=== PATIENT | male | born 1985 | race Hispanic/Latino ===

== ENCOUNTER 2018-02-11 16:44 | Emergency (ER) | payer SELFPAY ==
--- NOTE | 2018-02-11 16:54 | ER ---
Nurse's Notes [facility] Name: Javier Lagunas Age: 32 yrs Sex: Male : 1985 Arrival Date: 02/11/2018 Time: 16:48 Bed Waiting Private MD: Diagnosis: Presentation: 02/11 16:53 Note Patient left prior to triage, stating, "I got the blood to stop, I don't think I lk1 need to be here.". ED Course: 16:48 Patient arrived in ED. sb2 Administered Medications: No medications were administered Outcome: 16:53 Patient left the ED. lk1 Signatures: Precious Cedeno RN RN lk1 Elizabeth Nickerson sb2
== END 2018-02-11 16:53 | disposition left against medical advice (07) ==
LOC: ER 16:44
DX: Z02.9 Encounter for administrative examinations, unspecified (principal)

== ENCOUNTER 2018-09-15 08:32 | Emergency (ER) | payer SELFPAY ==
[2018-09-15] MEDS ORDERED: ONDANSETRON 4 MG/2 ML VIAL ONE (09:19)
[2018-09-15] MEDS ORDERED: NA CHLORIDE 0.9% 1,000 ML ONE (09:20)
[2018-09-15] MEDS ORDERED: FAMOTIDINE 20 MG/2 ML VIAL IV ONE (09:20)
[2018-09-15 09:52] LABS: ALT/SGPT 62 U/L (12-78); AST/SGOT 106 U/L (15-37); Albumin 4.1 g/dL (3.4-5.0); Alkaline Phosphatase 126 U/L (45-117); BUN Blood Urea Nitrogen 13 mg/dL (7-18); Bicarbonate 24 mmol/L (21-32); Bilirubin Direct 0.2 mg/dL (0-0.2); Bilirubin Total 0.6 mg/dL (0.2-1.0); Glucose Level 107 mg/dL (74-106); Lipase 131 U/L (73-393); Magnesium 2.4 mg/dL (1.8-2.4); Potassium 3.8 mmol/L (3.5-5.1); Protein, Total 8.2 g/dL (6.4-8.2); Sodium Level 135 mmol/L (136-145); Troponin I < 0.02 ng/mL (0.0-0.045)
[2018-09-15 09:59] LABS: Absolute Lymphocytes (CBC) 1.4 K/uL (0.7-4.9); Absolute Monocytes 0.9 K/uL (0.1-1.3); Basophils % 1.1 % (0-1.3); Hematocrit 47.6 % (39.6-49.0); MCV 100.4 fL (80-100); MPV 8.8 fL (7.6-11.3); Monocytes % 11.8 % (3.3-12.3); RBC Red Blood Cell Count 4.74 M/uL (4.33-5.43)
[2018-09-15 10:43] LABS: Barbiturates NEGATIVE (NEGATIVE); Benzodiazepines NEGATIVE (NEGATIVE); Cocaine NEGATIVE (NEGATIVE); METHAMPHETAM NEGATIVE (NEGATIVE); Methadone NEGATIVE (NEGATIVE); Opiates NEGATIVE (NEGATIVE); Phencyclidine NEGATIVE (NEGATIVE); THC Cannibis NEGATIVE (NEGATIVE)
--- NOTE | 2018-09-15 11:27 | RAD REPORT ---
EXAM DESCRIPTION: CT - Head Brain Wo Cont - 09/15/2018 11:10 am CLINICAL HISTORY: Headache COMPARISON: None. TECHNIQUE: Computed axial tomography of the head was obtained. IV contrast was not requested. All CT scans are performed using dose optimization technique as appropriate and may include automated exposure control or mA/KV adjustment according to patient size. FINDINGS: An intracranial bleed is not seen . The ventricles are normal in caliber. No extra-axial fluid collection is noted. Fluid within the sinuses/ mastoids is not seen. IMPRESSION: No acute intracranial abnormality is seen. If patient's symptoms persist MRI of the bra in would be recommended.
--- NOTE | 2018-09-15 12:14 | ER ---
Nurse's Notes [facility] Name: Javier Lagunas Age: 33 yrs Sex: Male : 1985 Arrival Date: 09/15/2018 Time: 08:36 Bed 7 Private MD: None, None Diagnosis: Alcohol dependence with withdrawal, uncomplicated Presentation: 09/15 08:49 Presenting complaint: Patient states: N/V, headache, and leg cramps since yesterday. Pt hb reports drinking 6-10 beers per day, last drink was yesterday. Transition of care: patient was not received from another setting of care. Onset of symptoms was September 14, 2018. Risk Assessment: Do you want to hurt yourself or someone else? Patient reports no desire to harm self or others. Care prior to arrival: None. 08:49 Method Of Arrival: Ambulatory hb 08:49 Acuity: BERNIE 3 hb 08:51 Initial Sepsis Screen: Does the patient meet any 2 criteria? No. Patient's initial tw2 sepsis screen is negative. Does the patient have a suspected source of infection? No. Patient's initial sepsis screen is negative. Historical: - Allergies: 08:50 No Known Allergies; tw2 08:50 No Known Allergies; hb - Home Meds: 08:50 ranitidine HCl 150 mg Oral cap 1 cap once daily [Active]; paroxetine HCl 20 mg Oral tab tw2 1 tab once daily [Active]; omeprazole 20 mg Oral cpDR 1 cap once daily [Active]; lisinopril-hydrochlorothiazide 10-12.5 mg Oral tab 1 tab once daily [Active]; 08:50 lisinopril-hydrochlorothiazide 10-12.5 mg Oral tab 1 tab once daily [Active]; hb omeprazole 20 mg Oral cpDR 1 cap once daily [Active]; paroxetine HCl 20 mg Oral tab 1 tab once daily [Active]; ranitidine HCl 150 mg Oral cap 1 cap once daily [Active]; - PMHx: 08:50 GERD; Hypertension; tw2 08:50 GERD; Hypertension; hb - Immunization history:: Adult Immunizations Adult Immunizations up to date. - Social history:: Smoking status: Smoking status: Patient/guardian denies using tobacco. - Ebola Screening: : Patient denies travel to an Ebola-affected area in the 21 days before illness onset No symptoms or risks identified at this time. Screenin:49 Abuse screen: Denies threats or abuse. Nutritional screening: No deficits noted. tw2 Tuberculosis screening: No symptoms or risk factors identified. Fall Risk None identified. Assessment: 08:50 General: Appears in no apparent distress. Behavior is cooperative, appropriate for age. tw2 Pain: Denies pain. Neuro: Level of Consciousness is awake, alert, obeys commands, Oriented to person, place, time, situation. Cardiovascular: Reports diaphoresis, lightheadedness, dizziness Denies chest pain, shortness of breath, Heart tones S1 S2 Patient's skin is warm and dry. Respiratory: Airway is patent Respiratory effort is even, unlabored, Respiratory pattern is regular, symmetrical, Breath sounds are clear bilaterally. GI: Abdomen is round non-distended, Bowel sounds present X 4 quads. Reports nausea. : No signs and/or symptoms were reported regarding the genitourinary system. EENT: No signs and/or symptoms were reported regarding the EENT system. Derm: Skin is diaphoretic. Musculoskeletal: Circulation, motion, and sensation intact. Range of motion: intact in all extremities. 09:50 Reassessment: Patient appears in no apparent distress at this time. No changes from tw2 previously documented assessment. Patient and/or family updated on plan of care and expected duration. Pain level reassessed. Patient is alert, oriented x 3, equal unlabored respirations, skin warm/dry/pink. 10:22 Reassessment: Patient appears in no apparent distress at this time. No changes from tw2 previously documented assessment. Patient and/or family updated on plan of care and expected duration. Pain level reassessed. Patient is alert, oriented x 3, equal unlabored respirations, skin warm/dry/pink. 11:30 Reassessment: Patient appears in no apparent distress at this time. Patient and/or tw2 family updated on plan of care and expected duration. Pain level reassessed. Patient is alert, oriented x 3, equal unlabored respirations, skin warm/dry/pink. 12:30 Reassessment: Patient appears in no apparent distress at this time. No changes from tw2 previously documented assessment. Patient and/or family updated on plan of care and expected duration. Pain level reassessed. Patient is alert, oriented x 3, equal unlabored respirations, skin warm/dry/pink. 13:30 Reassessment: Patient appears in no apparent distress at this time. Patient and/or tw2 family updated on plan of care and expected duration. Pain level reassessed. Patient is alert, oriented x 3, equal unlabored respirations, skin warm/dry/pink. 14:00 Reassessment: Patient appears in no apparent distress at this time. Patient and/or tw2 family updated on plan of care and expected duration. Pain level reassessed. Patient is alert, oriented x 3, equal unlabored respirations, skin warm/dry/pink. Vital Signs: 08:48 BP 160 / 101; Pulse 92; Resp 18; Temp 97.2; Pulse Ox 96% on R/A; Pain 5/10; hb 09:21 BP 158 / 90; Pulse 85; Resp 19; Pulse Ox 98% on R/A; tw2 09:34 BP 151 / 95 LA Supine (auto/lg); Pulse 85; Resp 19; Pulse Ox 99% ; ag 09:34 BP 167 / 22 LA Sitting (auto/lg); Pulse 88; Resp 14; Pulse Ox 98% on R/A; ag 09:34 BP 161 / 113 LA Standing (auto/lg); Pulse 103; Resp 16; Pulse Ox 100% ; ag 10:22 BP 139 / 95; Pulse 90; Resp 17; Pulse Ox 100% on R/A; tw2 11:30 BP 155 / 90; Pulse 93; Resp 18; Pulse Ox 100% on R/A; tw2 12:30 BP 144 / 86; Pulse 87; Resp 17; Pulse Ox 99% on R/A; tw2 13:30 BP 148 / 89; Pulse 90; Resp 17; Pulse Ox 99% on R/A; Pain 0/10; tw2 ED Course: 08:36 Patient arrived in ED. sb2 08:36 None, None is Private Physician. sb2 08:49 Milla Pro, RN is Primary Nurse. tw2 08:50 Triage completed. hb 08:50 Bed in low position. Call light in reach. Adult w/ patient. Pulse ox on. NIBP on. tw2 08:50 Arm band placed on right wrist. hb 08:51 Arm band placed on. tw2 08:58 Mahesh Kitchen PA is PHCP. cp 08:58 Stanford Holt MD is Attending Physician. cp 09:15 EKG done, by optics manufacturing technician. reviewed by Mahesh CHANG. at1 09:15 Inserted saline lock: 20 gauge in right antecubital area, using aseptic technique. tw2 Blood collected. 11:07 CT completed. Patient tolerated procedure well. Patient moved to CT via wheelchair. jg6 Patient moved back from CT. 11:11 CT Head Brain wo Cont In Process Unspecified. EDMS 14:00 No provider procedures requiring assistance completed. IV discontinued, intact, tw2 bleeding controlled, No redness/swelling at site. Pressure dressing applied. Administered Medications: 09:18 Drug: Zofran 4 mg Route: IVP; Site: right antecubital; tw2 10:30 Follow up: Response: No adverse reaction; Nausea is decreased tw2 09:20 Drug: Pepcid 20 mg Route: IVP; Site: right antecubital; tw2 10:45 Follow up: Response: No adverse reaction tw2 09:22 Drug: NS 0.9% 1000 ml Route: IV; Rate: 1 bolus; Site: right antecubital; tw2 11:30 Follow up: Response: No adverse reaction; IV Status: Completed infusion; IV Intake: tw2 1000ml 12:47 Drug: Librium - chlordiazePOXIDE 50 mg Route: PO; sg 13:30 Follow up: Response: No adverse reaction tw2 Point of Care Testing: Blood Glucose: 09:17 Blood Glucose: 105 mg/dL; tw2 Ranges: Intake: 11:30 IV: 1000ml; Total: 1000ml. tw2 Outcome: 12:13 Discharge ordered by MD. cp 14:00 Patient left the ED. tw2 14:00 Discharged to home ambulatory. tw2 14:00 Condition: stable 14:00 Discharge instructions given to patient, family, Instructed on discharge instructions, follow up and referral plans. medication usage, Demonstrated understanding of instructions, follow-up care, medications, Prescriptions given X 1. Signatures: Dispatcher [employer] Stone Fernandez, DEDRA COLMENARES sg Dana Cochran, weir fisher EKG Tat1 Carlie Hand Corey, PA PA cp Adali Martin RN RN Milla Pro RN RN tw2 Elizabeth Nickerson sb2 Lana Samayoa jg6 Corrections: (The following items were deleted from the chart) 12:26 08:49 Presenting complaint: Patient states: N/V, headache, and leg cramps since hb yesterday. Pt reports drinking 6-10 beers pre day, last drink was yesterday hb
--- NOTE | 2018-09-15 12:14 | EDPHYS ---
Physician Documentation [facility] Name: Javier Lagunas Age: 33 yrs Sex: Male : 1985 Arrival Date: 09/15/2018 Time: 08:36 Bed 7 Private MD: None, None ED Physician Stanford Holt HPI: 09/15 09:10 This 33 yrs old Male presents to ER via Ambulatory with complaints of Fever, cp Vomiting. 09:10 The patient reports fever, not measured (subjective). cp 09:10 Associated signs and symptoms: Pertinent positives: nausea, vomiting, Pertinent cp negatives: abdominal pain, chest pain, hemoptysis, skin rash. 09:10 Onset: The symptoms/episode began/occurred yesterday. cp 09:10 Patient reports to heavier use of alcohol over the past month and reports consuming cp approximately 6-10 beers a day. Reports last use of alcohol was yesterday. Historical: - Allergies: 08:50 No Known Allergies; tw2 08:50 No Known Allergies; hb - Home Meds: 08:50 ranitidine HCl 150 mg Oral cap 1 cap once daily [Active]; paroxetine HCl 20 mg Oral tab tw2 1 tab once daily [Active]; omeprazole 20 mg Oral cpDR 1 cap once daily [Active]; lisinopril-hydrochlorothiazide 10-12.5 mg Oral tab 1 tab once daily [Active]; 08:50 lisinopril-hydrochlorothiazide 10-12.5 mg Oral tab 1 tab once daily [Active]; hb omeprazole 20 mg Oral cpDR 1 cap once daily [Active]; paroxetine HCl 20 mg Oral tab 1 tab once daily [Active]; ranitidine HCl 150 mg Oral cap 1 cap once daily [Active]; - PMHx: 08:50 GERD; Hypertension; tw2 08:50 GERD; Hypertension; hb - Immunization history:: Adult Immunizations Adult Immunizations up to date. - Social history:: Smoking status: Smoking status: Patient/guardian denies using tobacco. - Ebola Screening: : Patient denies travel to an Ebola-affected area in the 21 days before illness onset No symptoms or risks identified at this time. ROS: 09:13 Constitutional: Positive for poor PO intake, Negative for fever. cp 09:13 Eyes: Negative for injury, pain, redness, and discharge. cp 09:13 ENT: Negative for drainage from ear(s), ear pain, sore throat, difficulty swallowing, difficulty handling secretions. 09:13 Cardiovascular: Negative for chest pain, edema, palpitations. 09:13 Respiratory: Negative for cough, shortness of breath, wheezing. 09:13 Abdomen/GI: Positive for nausea and vomiting, Negative for abdominal pain, diarrhea, constipation, black/tarry stool, rectal bleeding. 09:13 Back: Negative for pain at rest, pain with movement, radiated pain. 09:13 : Negative for urinary symptoms, testicular pain 09:13 Skin: Positive for diaphoresis, Negative for cellulitis, rash. 09:13 Neuro: Positive for dizziness, tremor, general weakness, Negative for altered mental status, headache, seizure activity, syncope. 09:13 Psych: Positive for alcohol dependence, Negative for depression, drug dependence, auditory hallucinations, visual hallucinations, suicide gesture, suicidal ideation. 09:13 All other systems are negative. Exam: 09:15 ECG was reviewed by the Attending Physician. cp 09:20 Constitutional: The patient appears in no acute distress, alert, awake, non-toxic, well cp developed, well nourished, diaphoretic. 09:20 Head/Face: Normocephalic, atraumatic. cp 09:20 Eyes: Periorbital structures: appear normal, Pupils: equal, round, and reactive to light and accomodation, Extraocular movements: intact throughout, Conjunctiva: normal, no exudate, no injection, Sclera: no appreciated abnormality, Lids and lashes: appear normal, bilaterally. 09:20 ENT: External ear(s): are unremarkable, Ear canal(s): are normal, clear, TM's: bulging, is not appreciated, bilaterally, dullness, bilaterally, erythema, is not appreciated, bilaterally, Nose: is normal, Mouth: Lips: moist, Oral mucosa: pink and intact, moist, Posterior pharynx: is normal, airway is patent, no erythema, no exudate, Voice: is normal. 09:20 Neck: ROM/movement: is normal, is supple, without pain, no range of motions limitations, no meningismus, no nuchal rigidity. 09:20 Chest/axilla: Inspection: normal, Palpation: is normal, no crepitus, no tenderness. 09:20 Cardiovascular: Rate: normal, Rhythm: regular, Heart sounds: murmur, not appreciated, Edema: is not appreciated, JVD: is not appreciated. 09:20 Respiratory: the patient does not display signs of respiratory distress, Respirations: normal, no use of accessory muscles, no retractions, no splinting, no tachypnea, labored breathing, is not present, Breath sounds: are clear throughout, no decreased breath sounds, no stridor, no wheezing. 09:20 Abdomen/GI: Inspection: abdomen appears normal, Bowel sounds: active, all quadrants, Palpation: abdomen is soft and non-tender, in all quadrants, rebound tenderness, is not appreciated, voluntary guarding, is not appreciated, involuntary guarding, is not appreciated. 09:20 Back: pain, is absent, ROM is normal. 09:20 Skin: cellulitis, is not appreciated, no rash present. 09:20 Neuro: Orientation: to person, place \T\ time. Mentation: is normal, Cerebellar function: is grossly normal, Motor: moves all fours, strength is normal, Sensation: is normal, Abnormal movements: resting tremor, is located in the right hand and left hand. 09:20 Psych: Patient has no thoughts/intents to harm self or others. Judgement / Insight is normal. Delusions/hallucinations are not present. Vital Signs: 08:48 BP 160 / 101; Pulse 92; Resp 18; Temp 97.2; Pulse Ox 96% on R/A; Pain 5/10; hb 09:21 BP 158 / 90; Pulse 85; Resp 19; Pulse Ox 98% on R/A; tw2 09:34 BP 151 / 95 LA Supine (auto/lg); Pulse 85; Resp 19; Pulse Ox 99% ; ag 09:34 BP 167 / 22 LA Sitting (auto/lg); Pulse 88; Resp 14; Pulse Ox 98% on R/A; ag 09:34 BP 161 / 113 LA Standing (auto/lg); Pulse 103; Resp 16; Pulse Ox 100% ; ag 10:22 BP 139 / 95; Pulse 90; Resp 17; Pulse Ox 100% on R/A; tw2 11:30 BP 155 / 90; Pulse 93; Resp 18; Pulse Ox 100% on R/A; tw2 12:30 BP 144 / 86; Pulse 87; Resp 17; Pulse Ox 99% on R/A; tw2 13:30 BP 148 / 89; Pulse 90; Resp 17; Pulse Ox 99% on R/A; Pain 0/10; tw2 MDM: 08:58 Patient medically screened. cp 09:30 Differential diagnosis: bronchitis, pneumonia UTI, gastroenteritis, alcohol withdrawal, cp electrolyte abnormality, cardiac arrythmia. 12:10 Data reviewed: vital signs, nurses notes, lab test result(s), EKG, radiologic studies, cp CT scan, plain films. 12:10 Test interpretation: by ED physician or midlevel provider: ECG, plain radiologic cp studies. Counseling: I had a detailed discussion with the patient and/or guardian regarding: the historical points, exam findings, and any diagnostic results supporting the discharge/admit diagnosis, lab results, radiology results, the need for outpatient follow up, a family practitioner, to return to the emergency department if symptoms worsen or persist or if there are any questions or concerns that arise at home. Response to treatment: the patient's symptoms have markedly improved after treatment, and as a result, I will discharge patient. 09/15 09:07 Order name: Basic Metabolic Panel; Complete Time: 10:39 09/15 10:40 Interpretation: Normal except: NA 135; GLUC 107. 09/15 09:07 Order name: CBC with Diff; Complete Time: 10:39 09/15 10:40 Interpretation: Normal except: MCV 100.4; MCH 36.0; RDW 11.8. 09/15 09:07 Order name: Creatinine for Radiology; Complete Time: 10:39 09/15 09:07 Order name: Hepatic Function; Complete Time: 10:39 09/15 10:40 Interpretation: Normal except: AST 106; ALK 126; GLOB 4.1; A/G 1.0. 09/15 09:07 Order name: Lipase; Complete Time: 10:40 09/15 09:07 Order name: Magnesium; Complete Time: 10:40 09/15 09:07 Order name: Troponin I; Complete Time: 10:40 09/15 09:07 Order name: UDS; Complete Time: 10:51 09/15 10:51 Interpretation: Reviewed. 09/15 10:02 Order name: Urine Dipstick--Ancillary (enter results); Complete Time: 13:04 09/15 10:50 Order name: CT Head Brain wo Cont; Complete Time: 11:37 cp 09/15 11:37 Interpretation: Report reviewed. cp 09/15 09:05 Order name: EKG; Complete Time: 09:05 tw2 09/15 09:05 Order name: EKG - Nurse/Tech; Complete Time: 09:09 tw2 09/15 09:07 Order name: Orthostatics; Complete Time: 09:28 cp 09/15 09:07 Order name: IV Saline Lock; Complete Time: : cp 09/15 09:07 Order name: Labs collected and sent; Complete Time: : cp EC:15 Rate is 89 beats/min. Rhythm is regular. OK interval is normal. QRS interval is normal. cp QT interval is normal. Interpreted by me. Reviewed by me. Administered Medications: :18 Drug: Zofran 4 mg Route: IVP; Site: right antecubital; tw2 10:30 Follow up: Response: No adverse reaction; Nausea is decreased tw2 09:20 Drug: Pepcid 20 mg Route: IVP; Site: right antecubital; tw2 10:45 Follow up: Response: No adverse reaction tw2 09:22 Drug: NS 0.9% 1000 ml Route: IV; Rate: 1 bolus; Site: right antecubital; tw2 11:30 Follow up: Response: No adverse reaction; IV Status: Completed infusion; IV Intake: tw2 1000ml 12:47 Drug: Librium - chlordiazePOXIDE 50 mg Route: PO; sg 13:30 Follow up: Response: No adverse reaction tw2 Point of Care Testing: Blood Glucose: :17 Blood Glucose: 105 mg/dL; tw2 Ranges: Critical Glucose Levels:Adult <50 mg/dl or >400 mg/dl <40 mg/dl or >180 mg/dl Disposition: 09/15/18 12:13 Discharged to Home. Impression: Alcohol dependence with withdrawal, uncomplicated. - Condition is Stable. - Discharge Instructions: Finding Treatment for Addiction, Alcohol Withdrawal, Alcohol Use Disorder, Alcohol Abuse and Nutrition. - Prescriptions for chlordiazepoxide HCl 25 mg Oral capsule - take 1 capsule by ORAL route 4 times per day As needed for withdrawal from alcohol; 30 capsule. - Medication Reconciliation Form, Thank You Letter, Antibiotic Education, Prescription Opioid Use, Work release form form. - Follow up: Private Physician; When: 1 - 2 days; Reason: Recheck today's complaints. - Problem is new. - Symptoms have improved. Signatures: Dispatcher [employer] EDStone Brizuela RN RN Mahesh Tamayo PA PA cp Adali Martin RN RN Milla Pro RN RN tw2 Corrections: (The following items were deleted from the chart) 14:00 12:13 09/15/2018 12:13 Discharged to Home. Impression: Alcohol dependence with tw2 withdrawal, uncomplicated. Condition is Stable. Discharge Instructions: Alcohol Withdrawal, Alcohol Abuse and Nutrition. Prescriptions for chlordiazepoxide HCl 25 mg Oral capsule - take 1 capsule by ORAL route 4 times per day As needed for withdrawal from alcohol; 30 capsule. and Forms are Work release form, Medication Reconciliation Form, Thank You Letter, Antibiotic Education, Prescription Opioid Use. Follow up: Private Physician; When: 1 - 2 days; Reason: Recheck today's complaints. Problem is new. Symptoms have improved. cp
[2018-09-15] MEDS ORDERED: chlordiazePOXIDE HCl 25 MG CAP ONE (12:49)
[2018-09-15 12:55] LABS: Urine Blood NEGATIVE (NEG); Urine Glucose NEGATIVE (NEG); Urine Protein NEGATIVE (NEG); Urine pH 6.5 (5.0-7.0)
--- NOTE | 2018-09-16 07:02 | EKG ---
Test Date: 2018-09-15 Test Time: 09:08:55 Underground Repairer: LIVE MEASUREMENT RESULTS: Intervals: Rate: 89 SC: 152 QRSD: 86 QT: 380 QTc: 462 [place]: P: 20 SC: 152 QRS: 67 T: 50 INTERPRETIVE STATEMENTS: Normal sinus rhythm Normal ECG Compared to ECG 03/11/2017 16:29:20 Sinus tachycardia no longer present Electronically Signed On 09-16-18 06:53:23 SKOOG OPERATOR by Roscoe Koch
== END 2018-09-15 14:00 | disposition home or self-care (01) ==
LOC: ER 08:32
DX: F10.239 Alcohol dependence with withdrawal, unspecified (principal); I10 Essential (primary) hypertension; K21.9 Gastro-esophageal reflux disease without esophagitis
CPT/HCPCS: 36415; 70450; 80048; 80076; 80307; 81003; 82962; 83690; 83735; 84484; 85025; 93005; 96361; 96374; 96375; 99285; J2405; J7030

== ENCOUNTER 2019-03-03 16:05 | Emergency (ER) | payer SELFPAY ==
[2019-03-03] MEDS ORDERED: FOLIC ACID 1 MG, MULTIVITAMINS INJ 10 ML, THIAMINE HCL 100 MG in NA CHLORIDE 0.9% 1,000 ML IV ONE (17:00)
[2019-03-03] MEDS ORDERED: NA CHLORIDE 0.9% 1,000 ML ONE (17:01)
[2019-03-03 17:11] LABS: Urine Blood NEGATIVE (NEG); Urine Glucose NEGATIVE (NEG); Urine Protein 2+ (NEG)
[2019-03-03 17:13] LABS: Absolute Lymphocytes (CBC) 1.2 K/uL (0.7-4.9); Absolute Monocytes 0.7 K/uL (0.1-1.3); Absolute Neutrophil 6.6 K/uL (1.8-8.0); Basophils % 0.4 % (0-1.3); Hematocrit 46.1 % (39.6-49.0); Lymphocytes % 13.6 % (15.3-44.8); Monocytes % 8.7 % (3.3-12.3); RBC Red Blood Cell Count 4.61 M/uL (4.33-5.43)
[2019-03-03 17:16] LABS: Protime INR 1.19
[2019-03-03 17:16] LABS: Barbiturates NEGATIVE (NEGATIVE); Benzodiazepines NEGATIVE (NEGATIVE); Cocaine NEGATIVE (NEGATIVE); METHAMPHETAM NEGATIVE (NEGATIVE); Methadone NEGATIVE (NEGATIVE); Opiates NEGATIVE (NEGATIVE); Phencyclidine NEGATIVE (NEGATIVE); THC Cannibis NEGATIVE (NEGATIVE)
[2019-03-03 17:40] LABS: ALT/SGPT 61 U/L (12-78); AST/SGOT 167 U/L (15-37); Albumin 4.1 g/dL (3.4-5.0); Alkaline Phosphatase 185 U/L (45-117); BUN Blood Urea Nitrogen 13 mg/dL (7-18); Bicarbonate 24 mmol/L (21-32); Bilirubin Direct 1.2 mg/dL (0-0.2); Bilirubin Total 3.5 mg/dL (0.2-1.0); CKMB Creatine Kinase MB 2.4 ng/mL (0.3-3.6); Creatine Phosphokinase 555 U/L (39-308); Glucose Level 108 mg/dL (74-106); Magnesium 1.8 mg/dL (1.8-2.4); NT PRO-BNP 122 pg/mL (<125); Potassium 3.2 mmol/L (3.5-5.1); Protein, Total 8.5 g/dL (6.4-8.2); Sodium Level 129 mmol/L (136-145); Troponin (Emerg Dept Use Only) < 0.02 ng/mL (0.0-0.045)
[2019-03-03] MEDS ORDERED: LORazepam 2 MG/ML VIAL ONE (18:09)
[2019-03-03] MEDS ORDERED: MAGNESIUM SULFATE 1 gm IVPB 1 GM/100 ML BAG IV ONE (18:40)
[2019-03-03] MEDS ORDERED: POTASSIUM 25 MEQ EFFERV TAB ONE (18:40)
--- NOTE | 2019-03-03 19:46 | RAD REPORT ---
EXAM DESCRIPTION: US - Abdomen Exam Limited - 03/03/2019 7:04 pm CLINICAL HISTORY: Abdominal pain. COMPARISON: None. FINDINGS: Borderline gallbladder distention Gallbladder wall is not thickened. A gallstone is not seen. Fatty liver The biliary tree is normal caliber. IMPRESSION: Borderline gallbladder distention. No gallstones seen
--- NOTE | 2019-03-03 19:55 | ER ---
Nurse's Notes [facility] Name: Javier Lagunas Age: 33 yrs Sex: Male : 1985 Arrival Date: 03/03/2019 Time: 16:08 Bed 17 Private MD: Diagnosis: Alcohol abuse;Alcohol dependence with withdrawal Presentation: 03/03 16:25 Presenting complaint: Patient states: cramping to all 4 extremities that began 2 week aa5 ago. Pt also reports inability to sleep, decreased urination, and shaking to arms. Pt states "I also wake up feeling dizzy". Pt reports he works outside. Transition of care: patient was not received from another setting of care. Onset of symptoms was February 2019. Risk Assessment: Do you want to hurt yourself or someone else? Patient reports no desire to harm self or others. Initial Sepsis Screen: Does the patient meet any 2 criteria? No. Patient's initial sepsis screen is negative. Does the patient have a suspected source of infection? No. Patient's initial sepsis screen is negative. Care prior to arrival: None. 16:25 Method Of Arrival: Ambulatory aa5 16:25 Acuity: BERNIE 3 aa5 Historical: - Allergies: 16:27 No Known Allergies; aa5 - Home Meds: 16:27 None [Active]; aa5 - PMHx: 16:27 Hypertension; aa5 - PSHx: 16:27 left index finger; aa5 - Immunization history:: Adult Immunizations unknown. - Social history:: Smoking status: Patient/guardian denies using tobacco. - Ebola Screening: : No symptoms or risks identified at this time. Screenin:50 Abuse screen: Denies threats or abuse. Nutritional screening: No deficits noted. em Tuberculosis screening: No symptoms or risk factors identified. Fall Risk None identified. Assessment: 16:50 General: Appears in no apparent distress. comfortable, Behavior is calm, cooperative, em Reports daily drinker, reports drinking 5 beers a day, pt shaking, reports tingling on abdomen, arms, and legs Denies fever. Pain: Complains of pain in abdomen. Neuro: Level of Consciousness is awake, alert, obeys commands, Oriented to person, place, time, situation. Cardiovascular: Capillary refill < 3 seconds Patient's skin is warm and dry. Respiratory: Airway is patent Respiratory effort is even, unlabored, Respiratory pattern is regular, symmetrical. GI: Abdomen is flat, Bowel sounds present X 4 quads. Abd is soft and non tender X 4 quads. Reports nausea, vomiting. : Urine is tea color. Derm: Skin is intact, is healthy with good turgor, Skin is pink, warm \\T\\ dry. Musculoskeletal: Capillary refill < 3 seconds, Range of motion: intact in all extremities. 16:55 General: The previous assessment is accurate, call light remains within reach.. ss 17:50 Reassessment: Patient is alert, oriented x 3, equal unlabored respirations, skin em warm/dry/pink. Patient states symptoms have improved. 18:46 Reassessment: Patient appears in no apparent distress at this time. Patient and/or em family updated on plan of care and expected duration. Pain level reassessed. reports feeling better Patient states symptoms have improved. 18:48 Reassessment: ultrasound at bedside. em 19:00 General: Appears in no apparent distress. comfortable, Behavior is calm, cooperative, rr5 appropriate for age, mild tremors noted.. 19:00 Reassessment: ongoing IV infusion. Pain: Denies pain. Neuro: Level of Consciousness is rr5 awake, alert, obeys commands, Oriented to person, place, time, situation, Appropriate for age. Cardiovascular: Capillary refill < 3 seconds Patient's skin is warm and dry. Respiratory: Airway is patent Respiratory effort is even, unlabored, Respiratory pattern is regular, symmetrical. GI: Abdomen is flat. : No signs and/or symptoms were reported regarding the genitourinary system. EENT: No signs and/or symptoms were reported regarding the EENT system. Derm: Skin is intact, is healthy with good turgor, Skin is pink, warm \\T\\ dry. Musculoskeletal: Capillary refill < 3 seconds, Range of motion: intact in all extremities. 20:05 Reassessment: Patient appears in no apparent distress at this time. Patient is alert, rr5 oriented x 3, equal unlabored respirations, skin warm/dry/pink. Ed provider re examined the patient. for discharge after the banana bag infusion. 21:11 Reassessment: Patient appears in no apparent distress at this time. Patient is alert, rr5 oriented x 3, equal unlabored respirations, skin warm/dry/pink. discharge instruction given and explained without complaints made. vitally stable. Patient denies pain at this time. Patient states feeling better. Patient states symptoms have improved. Vital Signs: 16:29 BP 157 / 96; Pulse 112; Resp 18 S; Temp 98.2(O); Pulse Ox 100% on R/A; Weight 90.72 kg aa5 (R); Height 5 ft. 2 in. (157.48 cm) (R); Pain 5/10; 17:11 BP 150 / 102; Pulse 102; Resp 17; Pulse Ox 100% on R/A; Pain 0/10; em 18:00 BP 141 / 91; Pulse 103; Resp 18; Pulse Ox 99% on R/A; Pain 0/10; em 19:00 BP 131 / 75; Pulse 98; Resp 17; Temp 98.4; Pulse Ox 99% on R/A; rr5 20:00 BP 122 / 81; Pulse 95; Resp 17; Temp 98.5; Pulse Ox 100% ; Pain 0/10; rr5 21:00 BP 126 / 80; Pulse 88; Resp 17; Temp 98.5; Pulse Ox 99% ; Pain 0/10; rr5 16:29 Body Mass Index 36.58 (90.72 kg, 157.48 cm) aa5 ED Course: 16:08 Patient arrived in ED. rg4 16:25 Arm band placed on. aa5 16:27 Triage completed. aa5 16:27 Mickey Pennington LVN is Primary Nurse. em 16:29 Mahesh Kitchen PA is PHCP. cp 16:29 Carlos Martin MD is Attending Physician. cp 16:50 Patient has correct armband on for positive identification. Bed in low position. Call em light in reach. phototypesetting equipment monitor on. Pulse ox on. NIBP on. 16:55 Initial lab(s) drawn, by me, sent to lab. Inserted saline lock: 20 gauge in right em antecubital area, using aseptic technique. Blood collected. 17:28 EKG done, by investment recovery technician. reviewed by Mahesh CHANG. sm3 19:00 PHCP role handed off by Mahesh Kitchen PA pm1 19:00 Fredo Bowie NP is PHCP. pm1 19:08 US Abdomen Limited: RUQ/epigastric area In Process Unspecified. EDMS 21:10 No provider procedures requiring assistance completed. IV discontinued, intact, rr5 bleeding controlled, No redness/swelling at site. Pressure dressing applied. Administered Medications: 16:55 Drug: NS 0.9% 1000 ml Route: IV; Rate: 1 bolus; Site: right antecubital; em 18:59 Follow up: IV Status: Completed infusion; IV Intake: 1000ml em 17:30 Drug: Banana Bag - (NS 0.9% 1000 ml, foLIC Acid 1 mg, Thiamine 100 mg, Multivitamin 1 em amp) Route: IV; Rate: 250 ml/hr; Site: right antecubital; 21:00 Follow up: Response: No adverse reaction; IV Status: Completed infusion; IV Intake: rr5 1000ml 17:54 Drug: Ativan 0.5 mg Route: IVP; Site: right antecubital; ss 18:20 Follow up: Response: No adverse reaction; Marked relief of symptoms em 18:36 Drug: Potassium Effervescent Tablet 50 mEq Route: PO; em 19:01 Follow up: Response: No adverse reaction em 18:36 Drug: Magnesium Sulfate 1 grams Route: IVPB; Infused Over: 30 mins; Site: right em antecubital; 19:20 Follow up: Response: No adverse reaction; IV Status: Completed infusion; IV Intake: rr5 100ml 18:41 Drug: Ativan 0.5 mg Route: IVP; Site: right antecubital; ss 20:00 Follow up: Response: No adverse reaction rr5 Intake: 18:59 IV: 1000ml; Total: 1000ml. em 19:20 IV: 100ml; Total: 1100ml. rr5 21:00 IV: 1000ml; Total: 2100ml. rr5 Outcome: 19:55 Discharge ordered by MD. pm1 21:10 Discharged to home ambulatory. rr5 21:10 Condition: stable 21:10 Discharge instructions given to patient, Instructed on discharge instructions, follow up and referral plans. medication usage, Demonstrated understanding of instructions, follow-up care, medications, Prescriptions given X 1. 21:12 Patient left the ED. rr5 Signatures: Dispatcher [employer] EDMS Mickey Pennington, DIGITAL MEDIA INTERN DIGITAL MEDIA INTERN em Loraine Raymundo RN RN aa5 Lyssa Chairez RN RN ss Mahesh Kitchen, BERNARDO PA Fredo Lu, BATCH FREEZER BATCH FREEZER pm1 Fatimah Samayoa rg4 Guadalupe Tracey sm3 Jeovany Jamison, RN RN rr5
--- NOTE | 2019-03-03 19:55 | EDPHYS ---
Physician Documentation [facility] Name: Javier Lagunas Age: 33 yrs Sex: Male : 1985 Arrival Date: 03/03/2019 Time: 16:08 Bed 17 Private MD: ED Physician Carlos Martin HPI: 03/03 16:45 This 33 yrs old Male presents to ER via Ambulatory with complaints of Shaking, cp Cramping all over. 18:34 generalized cramping times 4 weeks. Severity of symptoms: in the emergency department cp the symptoms are unchanged despite home interventions. 18:35 Patient reports generalized cramping times 2 weeks, shaking started this morning. cp Patient admits to daily drinking of approximately 6-7 beers daily for the past month with an increase in weekly alcohol intake for the past several months. Patient reports he stopped drinking today and wants to quit. Denies use of illegal drugs. Historical: - Allergies: 16:27 No Known Allergies; aa5 - Home Meds: 16:27 None [Active]; aa5 - PMHx: 16:27 Hypertension; aa5 - PSHx: 16:27 left index finger; aa5 - Immunization history:: Adult Immunizations unknown. - Social history:: Smoking status: Patient/guardian denies using tobacco. - Ebola Screening: : No symptoms or risks identified at this time. ROS: 16:50 Constitutional: Negative for body aches, fever, poor PO intake. cp 16:50 Eyes: Negative for injury, pain, redness, and discharge. cp 16:50 ENT: Negative for drainage from ear(s), ear pain, sore throat, difficulty swallowing, difficulty handling secretions. 16:50 Cardiovascular: Negative for chest pain, edema, palpitations. 16:50 Respiratory: Negative for cough, shortness of breath, wheezing. 16:50 Abdomen/GI: Negative for abdominal pain, nausea, vomiting, and diarrhea, constipation, black/tarry stool, rectal bleeding. 16:50 : Positive for small amounts, Negative for flank pain, burning with urination, testicular pain 16:50 Skin: Negative for cellulitis, rash. 16:50 Neuro: Positive for dizziness, tremor, Negative for altered mental status, headache, seizure activity, syncope, weakness. 16:50 All other systems are negative. Exam: 17:00 Constitutional: The patient appears in no acute distress, alert, awake, cp non-diaphoretic, non-toxic, well developed, well nourished. 17:00 Head/Face: Normocephalic, atraumatic. Eyes: Pupils equal round and reactive to light, cp extra-ocular motions intact. Lids and lashes normal. Conjunctiva and sclera are non-icteric and not injected. Cornea within normal limits. Periorbital areas with no swelling, redness, or edema. ENT: Nares patent. No nasal discharge, no septal abnormalities noted. Tympanic membranes are normal and external auditory canals are clear. Oropharynx with no redness, swelling, or masses, exudates, or evidence of obstruction, uvula midline. Mucous membranes moist. 17:00 Neck: ROM/movement: is normal, is supple, without pain, no range of motions limitations, no meningismus, no nuchal rigidity. 17:00 Chest/axilla: Inspection: normal, Palpation: is normal, no crepitus, no tenderness. 17:00 Cardiovascular: Rate: tachycardic, Rhythm: regular, Edema: is not appreciated, JVD: is not appreciated. 17:00 Respiratory: the patient does not display signs of respiratory distress, Respirations: normal, no use of accessory muscles, no retractions, no splinting, no tachypnea, labored breathing, is not present, Breath sounds: are clear throughout, no decreased breath sounds, no stridor, no wheezing. 17:00 Abdomen/GI: Inspection: abdomen appears normal, Bowel sounds: active, all quadrants, Palpation: abdomen is soft and non-tender, in all quadrants, involuntary guarding, is not appreciated. 17:00 Back: pain, is absent, ROM is normal. 17:00 Skin: no rash present. 17:00 Neuro: Orientation: to person, place \T\ time. Mentation: is normal, Motor: moves all fours, strength is normal, Abnormal movements: resting tremor, is located in the right arm and left arm. 17:28 ECG was reviewed by the Attending Physician. cp Vital Signs: 16:29 BP 157 / 96; Pulse 112; Resp 18 S; Temp 98.2(O); Pulse Ox 100% on R/A; Weight 90.72 kg aa5 (R); Height 5 ft. 2 in. (157.48 cm) (R); Pain 5/10; 17:11 BP 150 / 102; Pulse 102; Resp 17; Pulse Ox 100% on R/A; Pain 0/10; em 18:00 BP 141 / 91; Pulse 103; Resp 18; Pulse Ox 99% on R/A; Pain 0/10; em 19:00 BP 131 / 75; Pulse 98; Resp 17; Temp 98.4; Pulse Ox 99% on R/A; rr5 20:00 BP 122 / 81; Pulse 95; Resp 17; Temp 98.5; Pulse Ox 100% ; Pain 0/10; rr5 21:00 BP 126 / 80; Pulse 88; Resp 17; Temp 98.5; Pulse Ox 99% ; Pain 0/10; rr5 16:29 Body Mass Index 36.58 (90.72 kg, 157.48 cm) aa5 MDM: 16:30 Patient medically screened. cp 17:00 Differential Diagnosis dehydration, electrolyte abnormality, cardiac arrythmia, alcohol cp withdrawal, illegal drug use. 19:53 Data reviewed: vital signs. Data interpreted: Pulse oximetry: on room air is 99 %. pm1 Interpretation: normal. Counseling: I had a detailed discussion with the patient and/or guardian regarding: the historical points, exam findings, and any diagnostic results supporting the discharge/admit diagnosis, lab results, radiology results, the need for outpatient follow up, to return to the emergency department if symptoms worsen or persist or if there are any questions or concerns that arise at home. 03/03 16:41 Order name: Basic Metabolic Panel; Complete Time: 18:00 cp 03/03 18:00 Interpretation: Normal except: NA 129; K 3.2; CL 92; GLUC 108; CRE 1.66; GFR 47. cp 03/03 16:41 Order name: CBC with Diff; Complete Time: 20:19 cp 03/03 18:00 Interpretation: Normal except: MCV 100.1; PLT 97; ARJUN% 77.3; LYM% 13.6. cp 03/03 16:41 Order name: LFT's; Complete Time: 18:00 cp 03/03 18:00 Interpretation: Normal except: AST 167; ALK 185; BILIT 3.5; BILID 1.2; TP 8.5; GLOB cp 4.4; A/G 0.9. 03/03 16:41 Order name: Magnesium; Complete Time: 18:00 cp /07 16:41 Order name: NT PRO-BNP; Complete Time: 18:00 cp / 16:41 Order name: PT-INR; Complete Time: 18:00 cp / 16:41 Order name: Troponin (emerg Dept Use Only); Complete Time: 18:00 cp / 16:41 Order name: Ckmb; Complete Time: 18:00 cp / 16:41 Order name: CK; Complete Time: 18:00 cp / 16:41 Order name: UDS; Complete Time: 18:00 cp /07 17:08 Order name: Urine Dipstick--Ancillary (enter results); Complete Time: 18:00 eb 03/03 18:03 Order name: ETOH Level; Complete Time: 19:27 cp 03/03 18:03 Order name: US Abdomen Limited: RUQ/epigastric area; Complete Time: 19:49 cp 07 20:14 Order name: CBC Smear Scan; Complete Time: 20:19 EDMS 03/03 16:41 Order name: EKG; Complete Time: 16:42 cp 07 16:41 Order name: Cardiac monitoring; Complete Time: 17:06 cp 03/03 16:41 Order name: EKG - Nurse/Tech; Complete Time: 17:06 cp 03/03 16:41 Order name: IV Saline Lock; Complete Time: 17:06 cp 07 16:41 Order name: Labs collected and sent; Complete Time: 17:06 cp 03/03 16:41 Order name: O2 Per Protocol; Complete Time: 17:06 cp 03/03 16:41 Order name: O2 Sat Monitoring; Complete Time: 17:06 cp EC:28 Rate is 101 beats/min. Rhythm is regular. CA interval is normal. QRS interval is cp normal. QT interval is normal. Interpreted by me. Reviewed by me. Administered Medications: 16:55 Drug: NS 0.9% 1000 ml Route: IV; Rate: 1 bolus; Site: right antecubital; em 18:59 Follow up: IV Status: Completed infusion; IV Intake: 1000ml em 17:30 Drug: Banana Bag - (NS 0.9% 1000 ml, foLIC Acid 1 mg, Thiamine 100 mg, Multivitamin 1 em amp) Route: IV; Rate: 250 ml/hr; Site: right antecubital; 21:00 Follow up: Response: No adverse reaction; IV Status: Completed infusion; IV Intake: rr5 1000ml 17:54 Drug: Ativan 0.5 mg Route: IVP; Site: right antecubital; ss 18:20 Follow up: Response: No adverse reaction; Marked relief of symptoms em 18:36 Drug: Potassium Effervescent Tablet 50 mEq Route: PO; em 19:01 Follow up: Response: No adverse reaction em 18:36 Drug: Magnesium Sulfate 1 grams Route: IVPB; Infused Over: 30 mins; Site: right em antecubital; 19:20 Follow up: Response: No adverse reaction; IV Status: Completed infusion; IV Intake: rr5 100ml 18:41 Drug: Ativan 0.5 mg Route: IVP; Site: right antecubital; ss 20:00 Follow up: Response: No adverse reaction rr5 Disposition: 03/04 07:31 Co-signature as Attending Physician, Carlos Martin MD. rn Disposition: 03/03/19 19:55 Discharged to Home. Impression: Alcohol abuse, Alcohol dependence with withdrawal. - Condition is Stable. - Discharge Instructions: Alcohol Withdrawal, Alcohol Abuse and Nutrition, Alcoholic Liver Disease, Finding Treatment for Addiction. - Prescriptions for chlordiazepoxide HCl 25 mg Oral capsule - take 1 capsule by ORAL route 4 times per day As needed; 30 capsule. - Medication Reconciliation Form, Thank You Letter, Antibiotic Education, Prescription Opioid Use form. - Follow up: Emergency Department; When: As needed; Reason: Worsening of condition. Follow up: Private Physician; When: 2 - 3 days; Reason: Recheck today's complaints, Continuance of care, Re-evaluation by your physician. - Problem is new. - Symptoms have improved. Signatures: Dispatcher [employer] EDMS Mickey Pennington, CRM MARKETING ANALYST CRM MARKETING ANALYST Carlos Alex MD MD rn Calderon, Audri, RN RN aa5 Lyssa Chairez RN RN ss Page, Corey, PA PA cp Fredo Bowie, SUPERVISOR CARDING SUPERVISOR CARDING pm1 Jeovany Jamison, RN RN rr5 Corrections: (The following items were deleted from the chart) 03/03 18:42 03/02 17:00 Constitutional: The patient appears in no acute distress, alert, awake, cp non-diaphoretic, non-toxic, well developed, well nourished, cp 03/03 18:42 03/02 17:00 Head/Face: Normocephalic, atraumatic. Eyes: Pupils equal round and reactive cp to light, extra-ocular motions intact. Lids and lashes normal. Conjunctiva and sclera are non-icteric and not injected. Cornea within normal limits. Periorbital areas with no swelling, redness, or edema. ENT: Nares patent. No nasal discharge, no septal abnormalities noted. Tympanic membranes are normal and external auditory canals are clear. Oropharynx with no redness, swelling, or masses, exudates, or evidence of obstruction, uvula midline. Mucous membranes moist. Chest/axilla: Normal chest wall appearance and motion. Nontender with no deformity. No lesions are appreciated. cp 03/03 18:42 03/02 17:00 Cardiovascular: Rate: tachycardic, Rhythm: regular, Heart sounds: murmur, cp not appreciated, Edema: is not appreciated, JVD: is not appreciated, cp 03/03 18:42 03/02 17:00 Respiratory: the patient does not display signs of respiratory distress, cp Respirations: normal, no use of accessory muscles, no retractions, no splinting, no tachypnea, labored breathing, is not present, Breath sounds: are clear throughout, no decreased breath sounds, no stridor, no wheezing, cp 03/03 18:42 03/02 17:00 Abdomen/GI: Inspection: abdomen appears normal, Bowel sounds: active, all cp quadrants, Palpation: abdomen is soft and non-tender, in all quadrants, involuntary guarding, is not appreciated, cp 03/03 18:42 03/02 17:00 Skin: no rash present. cp cp 03/03 18:42 03/02 17:00 Neuro: Orientation: to person, place \T\ time. Mentation: is normal, cp Cerebellar function: is grossly normal, Motor: moves all fours, strength is normal, Abnormal movements: resting tremor, is located in the right arm and left arm, cp 03/03 21:12 19:55 03/03/2019 19:55 Discharged to Home. Impression: Alcohol abuse; Alcohol rr5 dependence with withdrawal. Condition is Stable. Discharge Instructions: Alcohol Withdrawal, Alcohol Abuse and Nutrition, Alcoholic Liver Disease. Prescriptions for chlordiazepoxide HCl 25 mg Oral capsule - take 1 capsule by ORAL route 4 times per day As needed; 30 capsule. and Forms are Medication Reconciliation Form, Thank You Letter, Antibiotic Education, Prescription Opioid Use. Follow up: Emergency Department; When: As needed; Reason: Worsening of condition. Follow up: Private Physician; When: 2 - 3 days; Reason: Recheck today's complaints, Continuance of care, Re-evaluation by your physician. Problem is new. Symptoms have improved. pm1
[2019-03-03 20:12] LABS: Urine White Blood Cell Casts OK
[2019-03-03 20:13] LABS: Blood Morphology Comment NOT SEEN (NOT SEEN); Platelet Estimate DECR
--- NOTE | 2019-03-04 09:02 | EKG ---
Test Date: 2019-03-03 Test Time: 17:26:44 Girl Friday: SUNITHA MEASUREMENT RESULTS: Intervals: Rate: 101 MT: 158 QRSD: 92 QT: 358 QTc: 464 [place]: P: 25 MT: 158 QRS: 72 T: 40 INTERPRETIVE STATEMENTS: Sinus tachycardia Otherwise normal ECG Compared to ECG 09/15/2018 09:08:55 Sinus rhythm no longer present Electronically Signed On 03-04-19 09:00:46 CDT by Roscoe Koch
== END 2019-03-03 21:12 | disposition home or self-care (01) ==
LOC: ER 16:05
DX: F10.239 Alcohol dependence with withdrawal, unspecified (principal); I10 Essential (primary) hypertension
CPT/HCPCS: 36415; 76705; 80048; 80076; 80307; 80320; 81003; 82550; 82553; 83735; 83880; 84484; 85025; 85610; 93005; 96361; 96365; 96366; 96375; 99285; J3411; J3475; J7030